=== PATIENT | male | born 1935 | race Caucasian/White ===

== ENCOUNTER 2020-04-07 15:53 | Emergency (ER) | payer BC, MEDICARE, OTHER ==
[~2020-04-07 15:53] MED LIST: AUGMENTIN 875-1 EACH PO
== END 2020-04-07 18:56 | disposition left against medical advice (07) ==
LOC: ER1 15:53
DX: U07.1 COVID-19 (principal); Z53.21 Procedure and treatment not carried out due to patient leaving prior to being seen by health care provider
CPT/HCPCS: U0002

== ENCOUNTER → 2020-06-07 | Outpatient (CLI) | payer MEDICARE, BC | LOC: HEART 5 14:19 | DX: I49.1 Atrial premature depolarization (principal); R00.2 Palpitations ==

== ENCOUNTER 2020-09-28 04:39 | Emergency (ER) | payer MEDICARE, BC | END 2020-09-28 07:21 | disposition home or self-care (01) | LOC: ER1 04:39 | DX: S46.911A Strain of unspecified muscle, fascia and tendon at shoulder and upper arm level, right arm, initial encounter (principal); I10 Essential (primary) hypertension; E11.9 Type 2 diabetes mellitus without complications; X50.0XXA Overexertion from strenuous movement or load, initial encounter | CPT/HCPCS: 73000; 73030; 99283 ==

== ENCOUNTER 2021-10-07 13:48 | Emergency (ER) | payer MEDICARE, BC ==
[2021-10-07 15:06] LABS: RED BLOOD COUNT 3.83 M/UL (4.20-5.50)
[2021-10-07 15:38] LABS: BUN/CREATININE RATIO 16 (0-10)
[2021-10-07] MEDS ORDERED: AMOX TR-K CLV1 EAC4 PO (16:59)
[2021-10-07] MEDS ORDERED: ZITHROMAX250 MG PO (16:59)
== END 2021-10-07 19:30 | disposition home or self-care (01) ==
LOC: ER1 13:48
PROVIDERS: Nurse Practitioner
DX: J18.9 Pneumonia, unspecified organism (principal); Z20.822 Contact with and (suspected) exposure to COVID-19; E11.9 Type 2 diabetes mellitus without complications; I25.2 Old myocardial infarction; I10 Essential (primary) hypertension; Z95.1 Presence of aortocoronary bypass graft
CPT/HCPCS: 0240U; 71045; 80053; 82550; 82553; 84484; 85025; 93005; 96374; 96375; 99284; J0456; J0696; J7030

== ENCOUNTER 2021-12-07 10:39 | Emergency (ER) | payer MEDICARE, BC, OTHER ==
[~2021-12-07 10:39] MED LIST changes: +AMOX TR-K CLV1 EAC4 PO; +ZITHROMAX250 MG PO
[2021-12-07 11:18] LABS: HEMOGLOBIN 10.4 gm/dl (14.0-17.5); RED BLOOD COUNT 4.07 M/UL (4.20-5.50); WHITE BLOOD COUNT 10.1 K/UL (4.5-11.0)
[2021-12-07] MEDS ORDERED: ZITHROMAX250 MG PO (23:10)
== END 2021-12-07 15:11 | disposition home or self-care (01) ==
LOC: ER1 10:39
PROVIDERS: Nurse Practitioner
DX: M19.012 Primary osteoarthritis, left shoulder (principal); M25.511 Pain in right shoulder; I48.20 Chronic atrial fibrillation, unspecified; I25.10 Atherosclerotic heart disease of native coronary artery without angina pectoris; I11.9 Hypertensive heart disease without heart failure; E11.9 Type 2 diabetes mellitus without complications; Z95.1 Presence of aortocoronary bypass graft; Z96.653 Presence of artificial knee joint, bilateral; Z79.82 Long term (current) use of aspirin; Z79.01 Long term (current) use of anticoagulants
CPT/HCPCS: 71045; 73030; 80053; 82550; 82553; 84484; 85025; 85610; 85730; 93005; 99283